=== PATIENT | male | born 1975 | race Hispanic/Latino ===

== ENCOUNTER 2018-03-31 15:42 | Emergency (ER) | payer SELFPAY ==
[~2018-03-31 15:42] MED LIST: ISOVUE-370 76%-LOCM 1 ML ONE
[2018-03-31 16:21] LABS: #Basophils 0.1 thou/uL (0.0-0.2); #Eosinphils 0.1 thou/uL (0.0-0.7); #Lymphocytes 1.5 thou/uL (1.20-3.40); #Neutrophils 15.5 thou/uL (1.40-6.50); %Basophils 0.3 % (0.0-1.0); %Eosinophils 0.7 % (0.0-10.0); %Lymphocytes 8.4 % (21.0-51.0); %Monocytes 5.5 % (0.0-10.0); %Neutrophils 85.2 % (42.0-75.0); Hemoglobin 15.1 g/dL (14.0-18.0); Mean Corpuscular HGB CONC 34.1 g/dL (32.0-36.0); Mean Corpuscular Hemoglobin 30.4 pg (27.0-31.0); Mean Corpuscular Volume 89.1 fl (80.0-94.0); Mean Platelet Volume 7.6 fL (7.4-10.4); Platelet Count 337 thou/uL (130-400); RBC Distribution Width 12.2 % (11.5-14.5); Red Blood Cell (RBC) Count 4.95 mill/uL (4.70-6.10); White Blood Cell (WBC) Count 18.2 thou/uL (4.8-10.8)
[2018-03-31 16:32] LABS: INR-International Normal Ratio 1.1; PTT 26.1 SEC (22.9-36.1)
[2018-03-31 16:45] LABS: ALT (SGPT) 35 U/L (8-55); AST (SGOT) 28 U/L (5-34); Albumin 4.3 g/dL (3.5-5.0); Alkaline Phosphatase 77 U/L (40-150); Anion Gap 15 mmol/L (10-20); BUN (Urea Nitrogen) 18 mg/dL (8.9-20.6); Bilirubin, Total 0.4 mg/dL (0.2-1.2); Calc. Creatinine Clearance 0 mL/min (70-130); Calcium 8.8 mg/dL (7.8-10.44); Carbon Dioxide 20 mmol/L (22-29); Chloride 108 mmol/L (98-107); Estimated GFR-MDRD 72; Globulin 3.6 g/dL (2.4-3.5); Glucose 99 mg/dL (70-105); Potassium 3.6 mmol/L (3.5-5.1); Protein, Total 7.9 g/dL (6.0-8.3); Sodium 139 mmol/L (136-145)
[2018-03-31] MEDS ORDERED: Lidocaine 1% w/Epinephrine 1:100K 20 ML VIAL ONE (18:28)
--- NOTE | 2018-03-31 18:36 | CT ---
ABDOMEN CT WITH CONTRAST PELVIC CT WITH CONTRAST: History: Right sided skin laceration. Pain. Patient has foot trauma. Patient hit his right foot and s cratched his side. Comparison: None. Technique: Abdomen and pelvic CT performed with IV contrast. Coronal reformatted images are submitted for interpretation. FINDINGS: There are dependent atelectatic changes. Heart size is normal. No pericardial effusion. The descendin g thoracic aorta and abdominal aorta have a normal caliber. NO periaortic fat stranding. Portal vein is patent. Liver, spleen, pancreas, and adrenal glands have appropriate enhancement. Gallbladder is unremarkable. No gastrohepatic, retrocrural, or peripelvic lymphadenopathy. There is symmetric enhancement of the kidneys. Submillimeter hypodensity in the right kidney cannot b e further characterized. Bilaterally, no obstructive uropathy. No mesenteric mass, lymphadenopathy, free air or free fluid. Limited evaluation of the alimentary can al due to the lack of oral contrast. NO evidence of bowel obstruction. Ileocecal junction is normal. Normal caliber appendix. Scattered fecal material in a nondistended, nondilated colon. PELVIC CT: No calculi. No pelvic mass, lymphadenopathy, free air or free fluid. There are no lytic or blastic le sions in the osseous structures. There is induration of the lateral/flank subcutaneous fat and soft tissues. Small defect with subacut e air is noted on axial image 63 and 64. No radiopaque foreign body. The underlying lateral rectus mu scles are intact. IMPRESSION: 1. Induration and injury involving the right lateral subcutaneous fat and dermis. Small dermal abrasi on and laceration is noted. 2. No intraabdominal or pelvic pathology. POS: [facility]
--- NOTE | 2018-03-31 19:21 | RAD ---
RIGHT ANKLE THREE VIEWS: History: Trauma. Pain. Comparison: None. FINDINGS: Ankle mortise is intact. Joint spaces are preserved. No soft tissue swelling. There appear to be fractures involving the 2nd, possibly 3rd, and 4th metatarsals, incompletely evalu ated. The possibility of a lisfranc injury cannot be excluded. Dedicated foot radiograph is recommend ed. IMPRESSION: 1. No evidence of an ankle fracture. 2. Dedicated foot radiographs recommended. POS: [facility]
== END 2018-03-31 19:50 | disposition home or self-care (01) ==
LOC: ERS 15:42
DX: S92.321A Displaced fracture of second metatarsal bone, right foot, initial encounter for closed fracture (principal); S92.331A Displaced fracture of third metatarsal bone, right foot, initial encounter for closed fracture; S31.119A Laceration without foreign body of abdominal wall, unspecified quadrant without penetration into peritoneal cavity, initial encounter; Z23 Encounter for immunization; W20.8XXA Other cause of strike by thrown, projected or falling object, initial encounter
CPT/HCPCS: 12001; 29515; 36415; 74177; 80053; 82550; 83605; 85025; 85610; 85730; 86850; 86900; 86901; 90471; 93005; J2001